=== PATIENT | female | born 1950 | race Caucasian/White ===

== ENCOUNTER → 2018-11-04 12:31 | Outpatient (CLI) | payer OTHER, SELFPAY ==
--- NOTE | 2018-11-04 | DI.MG.S_ITS ---
BILATERAL DIGITAL SCREENING MAMMOGRAM 3D/2D WITH CAD: 11/04/2018 CLINICAL: Routine screening. Comparison is made to exams dated: 02/24/2014 mammogram, 09/06/2010 mammogram, and 09/08/2008 mammogram - [facility]. The tissue of both breasts is heterogeneously dense. This may lower the sensitivity of mammography. Current study was also evaluated with a Computer Aided Detection (CAD) system. No significant masses, calcifications, or other findings are seen in either breast. There has been no significant interval change. IMPRESSION: NEGATIVE There is no mammographic evidence of malignancy. A 1 year screening mammogram is recommended. This exam was interpreted at Station ID: [id number]. NOTE: For mammograms, a report in lay terms will be sent to the patient. Approximately 15% of breast malignancies will not be visualized mammographically. In the management of a palpable breast mass, a negative mammogram must not discourage biopsy of a clinically suspicious lesion. Electronically Signed By: Nelson holloway/sophia:11/04/2018 13:34:20 letter sent: Normal Exam ACR BI-RADS Category 1: Negative 3341F
== END ==
PROVIDERS: PCP Internal Medicine; Visit Provider Internal Medicine
DX: Z12.31 Encounter for screening mammogram for malignant neoplasm of breast (principal)
CPT/HCPCS: 77063; 77067

== ENCOUNTER → 2019-04-14 11:27 | Outpatient (CLI) | payer OTHER, SELFPAY ==
[2019-04-14 13:43] LABS: Blood Urea Nitrogen 14 mg/dL (7-17); Carbon Dioxide 29 mmol/L (22-32); Chloride 103 mmol/L (98-107); Cholesterol 256 mg/dL (140-199); Estimated Glomerular Filt Rate > 60.0 mL/min (>60); Glucose 85 mg/dL (80-110); HEMOLYSIS < 15 (0-50); Potassium 4.7 mmol/L (3.4-5.1); Sodium 139 mmol/L (137-145); Triglycerides 63 mg/dL (35-150)
[2019-04-14 13:51] LABS: HDL Cholesterol 129 mg/dL (40-60); LDL Cholesterol Calculated 114 mg/dL (<100)
== END ==
PROVIDERS: PCP Internal Medicine; Visit Provider Internal Medicine
DX: Z13.220 Encounter for screening for lipoid disorders (principal); Z13.1 Encounter for screening for diabetes mellitus
CPT/HCPCS: 36415; 80048; 80061

== ENCOUNTER → 2019-04-17 14:40 | Outpatient (CLI) | payer OTHER, SELFPAY | PROVIDERS: PCP Internal Medicine; Visit Provider Internal Medicine | DX: Z78.0 Asymptomatic menopausal state (principal); F17.200 Nicotine dependence, unspecified, uncomplicated | CPT/HCPCS: 77080 ==

== ENCOUNTER → 2020-11-30 08:31 | Outpatient (CLI) | payer OTHER, SELFPAY ==
[2020-11-30 10:23] LABS: Alanine Aminotransferase 44 IU/L (<35); Albumin Globulin Ratio 1.3 (1.0-2.8); Alkaline Phosphatase 104 U/L (38-126); Aspartate Aminotransferase 69 IU/L (14-36); BUN Creatinine Ratio 19.1 (6-22); Bilirubin Total 0.2 mg/dL (0.2-1.3); Blood Urea Nitrogen 9 mg/dL (7-17); Calcium 9.6 mg/dL (8.4-10.2); Carbon Dioxide 30 mmol/L (22-32); Chloride 102 mmol/L (98-107); Cholesterol 232 mg/dL (140-199); Estimated Glomerular Filt Rate > 60.0 mL/min (>60); Glucose 92 mg/dL (80-110); HEMOLYSIS < 15 (0-50); Potassium 3.8 mmol/L (3.4-5.1); Sodium 136 mmol/L (137-145); Triglycerides 50 mg/dL (35-150)
[2020-11-30 10:40] LABS: HDL Cholesterol 143 mg/dL (40-60); LDL Cholesterol Calculated 79 mg/dL (<100)
== END ==
PROVIDERS: PCP Internal Medicine; Referring Provider Internal Medicine; Visit Provider Internal Medicine
DX: E78.5 Hyperlipidemia, unspecified (principal)
CPT/HCPCS: 36415; 80053; 80061

== ENCOUNTER → 2020-12-09 11:21 | Outpatient (CLI) | payer OTHER, SELFPAY ==
--- NOTE | 2020-12-09 | DI.MG.S_ITS ---
BILATERAL DIGITAL SCREENING MAMMOGRAM 3D/2D WITH CAD: 12/09/2020 CLINICAL: Routine screening. Comparison is made to exams dated: 11/04/2018 mammogram - [facility], 02/24/2014 mammogram, and 09/06/2010 mammogram - [facility]. The tissue of both breasts is heterogeneously dense. This may lower the sensitivity of mammography. Current study was also evaluated with a Computer Aided Detection (CAD) system. No significant masses, calcifications, or other findings are seen in either breast. There has been no significant interval change. IMPRESSION: NEGATIVE There is no mammographic evidence of malignancy. A 1 year screening mammogram is recommended. This exam was interpreted at Station ID: [id number]. NOTE: For mammograms, a report in lay terms will be sent to the patient. Approximately 15% of breast malignancies will not be visualized mammographically. In the management of a palpable breast mass, a negative mammogram must not discourage biopsy of a clinically suspicious lesion. Electronically Signed By: Nelson holloway/sophia:12/09/2020 17:52:19 letter sent: Normal Exam ACR BI-RADS Category 1: Negative 3341F
== END ==
PROVIDERS: PCP Internal Medicine; Referring Provider Internal Medicine; Visit Provider Internal Medicine
DX: Z12.31 Encounter for screening mammogram for malignant neoplasm of breast (principal)
CPT/HCPCS: 77063; 77067

== ENCOUNTER → 2020-12-17 14:56 | Outpatient (CLI) | payer OTHER, SELFPAY ==
--- NOTE | 2020-12-17 14:58 | DI.US.S_ITS ---
PROCEDURE: US RENAL COMPLETE INDICATIONS: LEFT FLANK PAIN - POST FALL TECHNIQUE: Real-time scanning was performed of the kidneys and bladder, with image documentation. COMPARISON: None. FINDINGS: Kidneys: Kidneys are normal in size. Right kidney measures 9.6 cm long; left kidney measures 9.5 cm long. Right renal cortical thickness is 1.5 cm; left renal cortical thickness is 1.7 cm. Renal cortical echotexture is normal. No hydronephrosis or nephrolithiasis. No suspicious solid mass lesions. There is a left-sided column of Emmett. Bladder: Pre-void bladder volume is 261 mL. On pre-void images, left but not the right ureteral jets are noted with color Doppler interrogation. (Of note, ureteral jets may not be detectable in up to 25% of cases due to insufficient differences in specific gravity between ureteral and bladder urine). The patient was unable to void voluntarily. Miscellaneous: No free pelvic fluid. IMPRESSION: No hydronephrosis or nephrolithiasis found. Two hundred sixty-one prevoid bladder volume but the patient was unable to voluntarily void. No left-sided urinary tract trauma found. Dictated by: Jose L Ward M.D. on 12/17/2020 at 16:10 Approved by: Jose L Ward M.D. on 12/17/2020 at 16:13
[2020-12-17 17:57] LABS: Appearance Urine UA CLEAR; Bilirubin Urine UA NEGATIVE (NEGATIVE); Color Urine UA YELLOW; Glucose Urine UA TRACE g/dL (Negative); Ketones Urine UA NEGATIVE (NEGATIVE); Leukocyte Esterase Urine UA TRACE (NEGATIVE); Nitrite Urine UA NEGATIVE (Negative); Occult Blood Urine UA NEGATIVE (Negative); Protein Urine UA NEGATIVE (Negative); Specific Gravity Urine UA 1.015 (1.000-1.035); Urobilinogen Urine UA 0.2 E.U./dL (0.2)
[2020-12-17 18:01] LABS: pH Urine UA 5.5 (4.5-8.0)
[2020-12-17 18:02] LABS: Bacteria Urine None Seen
[2020-12-17 18:08] LABS: Hyaline Casts Urine 0-1/LPF; RBC Urine 0-1/HPF (0-5/HPF); Squamous Epithelial Cell Urine 0-1 /HPF (0-5/HPF); WBC Urine 0-1/HPF (0-5/HPF)
[2020-12-17 18:09] LABS: Culture Indicated Urine Cult Not Indicated
== END ==
PROVIDERS: PCP Internal Medicine; Referring Provider Physician Assistant; Visit Provider Physician Assistant
DX: R10.9 Unspecified abdominal pain (principal)
CPT/HCPCS: 76770; 81003; 81015

== ENCOUNTER 2020-12-19 10:10 | Emergency (ER) | payer OTHER, SELFPAY ==
[2020-12-19 10:18] VITALS: BP 140/77; PULSE 98; RESP 17; TEMP 36.5; O2SAT 100; BMI 24.4
--- NOTE | 2020-12-19 10:49 | ED.BACK ---
HPI - Back Pain/Injury General Chief Complaint: Fall Stated Complaint: fell sunday /left flank pain Time Seen by Provider: 12/19/20 10:40 Source: patient Limitations: no limitations History of Present Illness HPI Narrative: Patient fell in or garden last Sunday. She lost her balance and fell against some rocks. Injuring left lower flank area. Denies any other injuries no head or neck or limb injury. Denies any fever chills. No hematuria. Seen by urgent care 2 days ago and had ultrasound of the kidneys and urinalysis. No blood work. Patient recently had blood work done by primary care for routine studies. There is no hematuria or blood seen on the urinalysis 2 days ago. Please see report below for ultrasound of the kidneys. Patient drove herself here [address] [id number] ReportSigned Patient: Nory Hess#: [id number]: 3Acct:[id number]/Sex: 70 / FDate of Service: 12/17/20Loc: USAccession Number: [id number] Procedure: US renal complete Ordering Provider: Rachel Bonilla P.A-C PROCEDURE: US RENAL COMPLETE INDICATIONS: LEFT FLANK PAIN - POST FALL TECHNIQUE: Real-time scanning was performed of the kidneys and bladder, with image documentation. COMPARISON: None. FINDINGS: Kidneys: Kidneys are normal in size. Right kidney measures 9.6 cm long; left kidney measures 9.5 cm long. Right renal cortical thickness is 1.5 cm; left renal cortical thickness is 1.7 cm. Renal cortical echotexture is normal. No hydronephrosis or nephrolithiasis. No suspicious solid mass lesions. There is a left-sided column of Emmett. Bladder: Pre-void bladder volume is 261 mL. On pre-void images, left but not the right ureteral jets are noted with color Doppler interrogation. (Of note, ureteral jets may not be detectable in up to 25% of cases due to insufficient differences in specific gravity between ureteral and bladder urine). The patient was unable to void voluntarily. Miscellaneous: No free pelvic fluid. IMPRESSION: No hydronephrosis or nephrolithiasis found. Two hundred sixty-one prevoid bladder volume but the patient was unable to voluntarily void. No left-sided urinary tract trauma found. Dictated by: Jose L Ward M.D. on 12/17/2020 at 16:10 Approved by: Jose L Ward M.D. on 12/17/2020 at 16:13 Related Data Home Medications Medication Instructions Recorded Confirmed escitalopram oxalate 20 mg tablet 20 mg PO DAILY tab 01/19/19 12/17/20 meloxicam 7.5 mg tablet 7.5 mg PO DAILY 01/19/19 12/17/20 sulfamethoxazole 800 1 tab PO BID 01/19/19 12/17/20 mg-trimethoprim 160 mg tablet Previous Rx's Medication Instructions Recorded prednisone 20 mg tablet 20 mg PO DAILY #10 tab 01/19/19 hydrocodone-acetaminophen 1 tab PO Q6H PRN #7 tab 12/19/20 Allergies Allergy/AdvReac Type Severity Reaction Status Date / Time Penicillins Allergy Intermediate Verified 12/17/20 14:15 Review of Systems Review of Systems Narrative: GENERAL: Denies chills, fatigue, malaise, fever, sweats. HEENT: Denies sinus pain, ear pain, sore throat RESPIRATORY: Denies dyspnea, cough CARDIOVASCULAR: Denies chest pain, palpitations GASTROINTESTINAL: Denies nausea, vomiting, abdominal pain : Denies dysuria, frequency, hematuria MUSCULOSKELETAL: Complaint muscle or bony pain SKIN: Denies rash, skin lesions, no laceration or abrasion. Bruising present NEUROLOGIC: Denies weakness, numbness ROS Unobtainable: All systems reviewed & are unremarkable except as noted in HPI and below Patient History Social History Smoking Status: Unknown if ever smoked Smoking Status: Unknown if ever smoked Substance Use Type: does not use Exam Narrative Exam Narrative: GENERAL: in no distress, not toxic not dyspneic HEAD: Normocephalic. EYES: Pupils equal round No scleral icterus. No injection no discharge ENT: Mucous membranes moist. NECK: Trachea midline. CARDIOVASCULAR: Regular rate and rhythm without murmurs RESPIRATORY: Clear to auscultation. Breath sounds equal bilaterally. No wheezes, rales, or rhonchi. GASTROINTESTINAL: Abdomen soft, non-tender EXTREMITIES: No gross deformities. BACK: There is no no midline tenderness or step-off. There is small amount of bruising 5 cm in diameter that is tender at the low paralumbar left side. Just above the pelvis bone. Not overlying the kidney. NEURO: AOx4. SKIN: Warm and dry PSYCH: Not anxious, is cooperative Initial Vital Signs Initial Vital Signs: Vital Signs Temperature 97.7 F 12/19/20 10:18 Pulse Rate 98 H 12/19/20 10:18 Respiratory Rate 17 12/19/20 10:18 Blood Pressure 140/77 12/19/20 10:18 Pulse Oximetry 100 12/19/20 10:18 Course Course Course Narrative: No new issues during course of stay. Orders Ordered: ED Orders 12/19/20 10:48 CT abdomen pelvis wo con Stat 12/19/20 10:53 Complete Blood Count AUTO DIFF Stat Comprehensive Metabolic Panel Stat Reevaluation(s) Reevaluation #1: Reviewed results with patient. Agrees with treatment plan and follow-up with primary care. Time: 12:01 Vital Signs Vital signs: Vital Signs - 8 hr 12/19/20 10:18 12/19/20 11:11 Temperature 97.7 F Pulse Rate 98 H 81 Respiratory Rate 17 14 Blood Pressure 140/77 120/75 Pulse Oximetry 100 99 MDM - Back Pain/Injury Differential Diagnosis Differential diagnosis: Likely other (Contusion/fracture/hematoma) Lab Data Attestation: I reviewed the patient's lab results. Result diagrams: 12/19/20 10:53 12/19/20 10:53 Labs: Lab Results 12/19/20 12/19/20 Range/Units 10:53 10:53 WBC 6.4 (4.5-11.0) X10^3/uL RBC 5.01 (4.0-5.2) X10^6/uL Hgb 14.4 (12.0-16.0) g/dL Hct 44.2 (36-46) % MCV 88.3 (80-100) fL MCH 28.8 (26-34) PG MCHC 32.6 (30-36) % RDW 14.0 (11.6-14.8) % Plt Count 298 (150-400) X10^3/uL Neut % (Auto) 65.0 (50-75) % Lymph % (Auto) 25.7 (25-40) % Hodgeman % (Auto) 6.0 (3-14) % Eos % (Auto) 2.4 (2-4) % Baso % (Auto) 0.9 (0-2) % Neut # (Auto) 4100 (6451-1149) /uL Lymph # (Auto) 1600 (8261-5453) /uL Hodgeman # (Auto) 400 (0-900) /uL Eos # (Auto) 200 (0-450) /uL Baso # (Auto) 100 (0-100) /uL Sodium 139 (137-145) mmol/L Potassium 3.7 (3.4-5.1) mmol/L Chloride 101 (98-107) mmol/L Carbon Dioxide 30 (22-32) mmol/L BUN 16 (7-17) mg/dL Creatinine 0.61 (0.52-1.04) mg/dL Estimated GFR > 60.0 (>60) mL/min BUN/Creatinine Ratio 26.2 H (6-22) Glucose 117 H (80-110) mg/dL Calcium 10.1 (8.4-10.2) mg/dL Total Bilirubin 0.5 (0.2-1.3) mg/dL AST 38 H (14-36) IU/L ALT 30 (<35) IU/L Alkaline Phosphatase 104 (38-126) U/L Total Protein 7.5 (6.3-8.2) g/dL Albumin 4.2 (3.5-5.0) g/dL Globulin 3.3 (1.7-4.1) g/dL Albumin/Globulin Ratio 1.3 (1.0-2.8) Imaging Data CT scan - abdomen/pelvis: Radiologist's Impression: [address] [id number] Scan ReportSigned Patient: Nory Hess#: [id number]: 1950cct:[id number]/Sex: 70 / FDate of Service: 12/19/20Loc: EDAccession Number: [id number] Procedure: CT abdomen pelvis wo con Ordering Provider: Kyle Smith MD PROCEDURE: CT ABDOMEN PELVIS WO CON INDICATIONS: Injury/fall/left flank pain TECHNIQUE: Noncontrast 5 mm thick sections acquired from the diaphragms to the symphysis. 5 mm coronal and sagittal reformats were then performed. For radiation dose reduction, the following was used: automated exposure control, adjustment of mA and/or kV according to patient size. COMPARISON: None. FINDINGS: Image quality: There is artifact associated with the metallic hardware. ABDOMEN: Lung bases: Lung bases are clear. Heart size is normal. Moderate coronary artery calcification is seen. Solid organs: Liver is normal in size. Gallbladder wall is not thickened. Pancreas is normal in contours. Spleen is normal in size. No adrenal nodules. Kidneys are normal in size, without hydronephrosis or nephrolithiasis. Peritoneum and bowel: Unenhanced bowel loops demonstrate normal wall thickness and caliber. No free fluid or air. Nodes and vessels: No retroperitoneal or mesenteric adenopathy by size criteria. Aorta and inferior vena cava are normal in caliber. Atherosclerotic calcification is noted. Miscellaneous: No ventral hernias. PELVIS: Genitourinary: Bladder wall thickness is normal. This patient is status post hysterectomy. No adnexal masses are seen. Miscellaneous: No inguinal hernias or adenopathy. Bones: Remote, healed right posterolateral rib fractures are seen. No suspicious bony lesions. Right hip arthroplasty hardware is seen over with associated streak artifact through No vertebral body compression fractures. Bilateral pars defects are seen, with associated grade 1 L5-S1 anterolisthesis. Moderate to severe disc space narrowing can be seen at L1-L2 and L5-S1. Milder degenerative changes are seen elsewhere. Mild levoconvex scoliotic curvature is noted. IMPRESSION: No acute post-traumatic abnormality can be seen. Incidental note is made of: Moderate coronary artery calcification Remote, healed right posterolateral rib fractures Hysterectomy L5 pars defects, with grade 1 L5-S1 anterolisthesis Focal L1-L2 and L5-S1 degenerative change Right hip arthroplasty hardware, with streak artifact Dictated by: Ced Euceda M.D. on 12/19/2020 at 10:46 Approved by: Ced Euceda M.D. on 12/19/2020 at 10:49 MDM Narrative Medical decision making narrative: Appropriate for discharge home. Labs and imaging reassuring. Pain is controlled. Appropriate for follow-up. Discharge Plan Departure Patient Disposition: Home Clinical Impression: Contusion of back Qualifiers: Encounter type: initial encounter Laterality: left Qualified Code(s): S20.222A - Contusion of left back wall of thorax, initial encounter Instructions: DI for Contusion, How to Prevent Falls Activity Restrictions/Additional Instructions: See family doctor this week for recheck. Return if worse or any questions or concerns. Prescriptions: New hydrocodone-acetaminophen 5-325 mg tablet 1 tab PO Q6H PRN (Reason: pain) Qty: 7 RF: 0 No Action escitalopram oxalate [Lexapro] 20 mg tablet 20 mg PO DAILY RF: 0 meloxicam 7.5 mg tablet 7.5 mg PO DAILY RF: 0 sulfamethoxazole-trimethoprim [Bactrim DS] 800-160 mg tablet 1 tab PO BID RF: 0 prednisone 20 mg tablet 20 mg PO DAILY Qty: 10 RF: 0 Referrals: Keila Joseph MD [Primary Care Provider] -
[2020-12-19 11:11] VITALS: BP 120/75; PULSE 81; RESP 14; O2SAT 99
[2020-12-19 11:12] LABS: Add Manual Diff / Slide Review NO; Basophils Absolute Auto 100 /uL (0-100); Basophils Percent Auto 0.9 % (0-2); Eosinophils Absolute Auto 200 /uL (0-450); Eosinophils Percent Auto 2.4 % (2-4); Hematocrit 44.2 % (36-46); Hemoglobin 14.4 g/dL (12.0-16.0); Lymphocytes Absolute Auto 1600 /uL (1100-4500); Lymphocytes Percent Auto 25.7 % (25-40); Mean Corpuscular HGB Conc 32.6 % (30-36); Mean Corpuscular Hemoglobin 28.8 PG (26-34); Mean Corpuscular Volume 88.3 fL (80-100); Monocytes Absolute Auto 400 /uL (0-900); Neutrophils Absolute Auto 4100 /uL (1500-7000); Platelet Count 298 X10^3/uL (150-400); Red Blood Cell Count 5.01 X10^6/uL (4.0-5.2); White Blood Cell Count 6.4 X10^3/uL (4.5-11.0)
[2020-12-19 11:17] LABS: Alanine Aminotransferase 30 IU/L (<35); Albumin 4.2 g/dL (3.5-5.0); Albumin Globulin Ratio 1.3 (1.0-2.8); Alkaline Phosphatase 104 U/L (38-126); Aspartate Aminotransferase 38 IU/L (14-36); BUN Creatinine Ratio 26.2 (6-22); Bilirubin Total 0.5 mg/dL (0.2-1.3); Blood Urea Nitrogen 16 mg/dL (7-17); Calcium 10.1 mg/dL (8.4-10.2); Carbon Dioxide 30 mmol/L (22-32); Chloride 101 mmol/L (98-107); Estimated Glomerular Filt Rate > 60.0 mL/min (>60); Globulin 3.3 g/dL (1.7-4.1); Glucose 117 mg/dL (80-110); HEMOLYSIS < 15 (0-50); Potassium 3.7 mmol/L (3.4-5.1); Sodium 139 mmol/L (137-145); Total Protein 7.5 g/dL (6.3-8.2)
== END 2020-12-19 12:28 | disposition home or self-care (01) ==
PROVIDERS: Emergency Provider Emergency Medicine; PCP Internal Medicine
DX: S20.222A Contusion of left back wall of thorax, initial encounter (principal); W19.XXXA Unspecified fall, initial encounter
CPT/HCPCS: 36415; 74176; 80053; 85025; 99284

== ENCOUNTER → 2021-06-10 08:02 | Outpatient (CLI) | payer MEDICARE, SELFPAY ==
[2021-06-10] MEDS: COVID-19 VACC #3, MRNA(MOD) 50 MCG/0.25 ML VIAL IM (08:13)
== END ==
PROVIDERS: PCP Internal Medicine; Visit Provider Internal Medicine
DX: Z23 Encounter for immunization (principal)
CPT/HCPCS: 0013A; 91301

== ENCOUNTER → 2023-04-16 15:18 | Outpatient (CLI) | payer OTHER, SELFPAY ==
--- NOTE | 2023-04-16 | DI.MG.S_ITS ---
BILATERAL DIGITAL SCREENING MAMMOGRAM 3D/2D WITH CAD: 04/16/2023 CLINICAL: Routine screening. Comparison is made to exams dated: 12/09/2020 mammogram, 11/04/2018 mammogram - [facility], and 02/24/2014 mammogram - [facility]. Both breasts are heterogeneously dense, which may obscure small masses (category c / 51-75% glandular tissue). Current study was also evaluated with a Computer Aided Detection (CAD) system. No significant masses, calcifications, or other findings are seen in either breast. There has been no significant interval change. IMPRESSION: NEGATIVE There is no mammographic evidence of malignancy. A 1 year screening mammogram is recommended. Based on the Tyrer Cuzick model (a risk assessment model) the patient's lifetime risk is 6.9% and her 10 year risk is 4.4%. According to the ACR, ACS, and NCCN guidelines, an annual breast MRI exam along with mammogram is recommended if the patient's lifetime risk is 20% or greater. This exam was interpreted at Station ID: [id number]. NOTE: For mammograms, a report in lay terms will be sent to the patient. Approximately 15% of breast malignancies will not be visualized mammographically. In the management of a palpable breast mass, a negative mammogram must not discourage biopsy of a clinically suspicious lesion. Electronically Signed By: Vane cole/sophia:04/17/2023 09:15:33 letter sent: Normal Exam ACR BI-RADS Category 1: Negative 3341F
== END ==
PROVIDERS: PCP Internal Medicine; Referring Provider Internal Medicine; Visit Provider Internal Medicine
DX: Z12.31 Encounter for screening mammogram for malignant neoplasm of breast (principal)
CPT/HCPCS: 77063; 77067

== ENCOUNTER 2023-06-04 11:02 | Day surgery (SDC) | payer OTHER, SELFPAY ==
--- NOTE | 2023-06-04 | PATH_ITS ---
[facility] Accession Number: [id number] No. of containers..01 Tissue . 01 Material submitted: . colon - TRANSVERSE POLYP . 01 Diagnosis: Transverse Colon Polyp: Tubular adenoma. [facility] 06/13/2023 1146 Local . 01 Electronically signed: . Merritt Cunningham MD, PhD, Pathologist NPI- [id number] . 01 Gross description: . TRANSVERSE POLYP: Received in formalin is 1 fragment(s) of sr, soft tissue measuring 0.2 x 0.2 x 0.2 cm submitted entirely in 1 cassette(s) /GEORGE 06/05/2023 1856 Local . 01 Pathologist provided ICD-10: D12.3 . 01 CPT . 423108 Specimen Comment: A courtesy copy of this report has been sent to [phone] Performed at: [address] [facility] Cytology [address] [place] [address] [id number] MD Erik Taylor MD Phone: [phone]
[2023-06-04 11:39] VITALS: BP 149/94; PULSE 79; RESP 17; TEMP 36.3; O2SAT 98; BMI 24.0
[2023-06-04] MEDS: LACTATED RINGERS 1,000 ML 150 ML IV (11:56)
--- NOTE | 2023-06-04 12:33 | P.HP_ITS ---
History of Present Illness History of Present Illness Date Patient Seen: 06/04/23 Time Patient Seen: 12:33 Chief complaint: Dx Colonoscopy w/poss bx Narrative: 72-year-old female with family history of colon polyps and a personal history of colon polyps. Histology on all of these polyps is unknown. She could not recall the exact timing of her last colonoscopy. [facility] Social History household members: none Smoking Status: Never smoker alcohol intake: current Meds Home Medications and Allergies Home Medications Medication Instructions Recorded Confirmed Type escitalopram oxalate 20 mg tablet 20 mg PO DAILY 01/19/19 06/04/23 History (Lexapro) meloxicam 7.5 mg tablet 7.5 mg PO DAILY 01/19/19 06/04/23 History Methotrexate (Anti-Rheumatic) 2.5 mg PO WEEKLY 06/04/23 06/04/23 History Allergies Allergy/AdvReac Type Severity Reaction Status Date / Time Penicillins Allergy Intermediate Verified 12/17/20 14:15 Review of Systems Review of Systems ROS: Yes All systems reviewed with the patient and are negative except as otherwise documented Exam Vital Signs (past 8 hours): - 06/04/23 11:39 Temperature 97.4 F L Pulse Rate 79 Respiratory Rate 17 Blood Pressure 149/94 H Pulse Oximetry 98 Oxygen Delivery Method Room Air Oxygen Delivery Method Room Air Const General: cooperative HENMT Head: normal to inspection Eyes General: appearance normal, both eyes and all related structures Neck Neck: normal visual inspection Chest Chest: normal inspection of the chest Resp Effort & Inspection: normal respiratory effort Cardio Rate: regular rate GI Inspection: normal to inspection Skin General: no rashes or lesions noted Neuro General: patient alert and patient awake Extrem General: normal to inspection and no pedal edema Psych Appearance: grossly normal Assessment & Plan Assessment & Plan narrative: 72-year-old female with a personal and family history of unknown histology colon polyps. Colonoscopy is pursued today.
--- NOTE | 2023-06-04 12:34 | PM.PREOP ---
Pre-operative Note Interval Note History & Physical reviewed/Exam performed by Physician: Yes Changes to H&P: No ASA Class (for procedural sedation): II
--- NOTE | 2023-06-04 13:32 | PM.OP.COLON ---
Operative Date/Time/Diagnoses Date of procedure: 06/04/23 Time of procedure: 13:32 Pre-op diagnosis: Personal history of colon polyps family history of colon polyps all unknown histology. Post-op diagnosis: same Procedure & Clinicians Study performed: Colonoscopy with cold forceps polypectomy Same procedure as scheduled: Yes Indications: Personal and family history of unknown histology colon polyps Surgeon: Nabil Rainey Procedure Notes SCOAP/Timeout: Done Procedure in detail: After the risks and benefits were explained, written and verbal informed consent was obtained. The patient was brought into the procedure room and placed into the left lateral decubitus position. Please see anesthesia notes for sedation details. Digital rectal examination was accomplished. The scope was introduced into the patient and advanced under direct visualization to the cecum as identified by the appendiceal orifice and ileocecal valve. The scope was slowly withdrawn to carefully examine the mucosa for any defects or lesions. Comprehensive imaging was accomplished throughout the rectum including the dentate line. The colon was decompressed, the scope was then removed from the patient who tolerated the procedure well. Pediatric colonoscope Bowel prep adequate Scope withdrawal time: 10 minutes Sedation minutes: 21 Complications: none Impression: There was some early diverticulosis in the sigmoid. The sigmoid was fairly tortuous. In the transverse colon there was a diminutive polyp removed with cold forceps. No additional significant pathology appreciated throughout. Endoscopic diagnosis 1. Small colon polyp 2. Diverticulosis 3. Twisty left colon Post-procedure Plan for aftercare: 1. Await histopathology. 2. Contingent on pathology results, surveillance colonoscopy can be considered. Disposition: PACU
[2023-06-04 13:33] VITALS: BP 100/52; PULSE 78; RESP 21; TEMP 36.1; O2SAT 96
[2023-06-04 13:37] VITALS: BP 107/65; PULSE 76; RESP 15; O2SAT 96
[2023-06-04 13:42] VITALS: BP 118/75; PULSE 76; RESP 14; TEMP 36.7; O2SAT 98
[2023-06-04 13:51] VITALS: BP 118/75; PULSE 73; RESP 16; TEMP 36.7; O2SAT 100
== END 2023-06-04 14:07 | disposition home or self-care (01) ==
PROVIDERS: PCP Internal Medicine; Referring Provider Internal Medicine Gastroenterology; Visit Provider Internal Medicine Gastroenterology
PROC: 0DJD8ZZ Inspection of Lower Intestinal Tract, Via Natural or Artificial Opening Endoscopic (ICD-10-PCS; CPT 45378; principal; 2023-06-04 12:30)
DX: Z12.11 Encounter for screening for malignant neoplasm of colon (principal); Z86.010 Personal history of colon polyps; Z83.719 Family history of colon polyps, unspecified; K57.30 Diverticulosis of large intestine without perforation or abscess without bleeding; D12.3 Benign neoplasm of transverse colon
CPT/HCPCS: 45380; J2704

== ENCOUNTER → 2024-02-23 16:51 | Outpatient (CLI) | payer MEDICARE, SELFPAY ==
--- NOTE | 2024-02-23 16:53 | DI.RAD.S_ITS ---
PROCEDURE: XR FOOT LT MIN 3V INDICATIONS: Left foot pain TECHNIQUE: 3 views of the foot were acquired. COMPARISON: None. FINDINGS: Bones: No fractures or dislocations. No suspicious bony lesions. Generalized degenerative changes are seen, which are worst along the Lisfranc joint. Focal 1st metatarsophalangeal joint degenerative change is also seen. Incidental note is made of an accessory ossicle, a bipartite os trigonum. Soft tissues: No tibiotalar joint effusion. Achilles tendon appears normal. IMPRESSION: Generalized degenerative changes are seen by plain film, which are worst along the Lisfranc joint. Dictated by: Ced Euceda M.D. on 02/23/2024 at 16:24 Approved by: Ced Euceda M.D. on 02/23/2024 at 16:25
== END ==
LOC: RAD 16:52
PROVIDERS: PCP Internal Medicine; Referring Provider Registered Nurse; Visit Provider Registered Nurse
DX: M79.672 Pain in left foot (principal)
CPT/HCPCS: 73630

== ENCOUNTER → 2025-01-27 12:40 | Outpatient (CLI) | payer MEDICARE, SELFPAY ==
--- NOTE | 2025-01-27 12:41 | DI.MG.S_ITS ---
MM screening mammo BI: 01/27/2025. BI-RADS: 1 CLINICAL: 74-year old female for bilateral screening mammogram. Tyrer-Cuzick lifetime risk of 4.2%. No personal or first-degree family history of breast cancer. PRIOR EXAMS 04/16/2023, 12/09/2020, 11/04/2018. MAMMOGRAPHY TECHNIQUE: 2D and 3D (tomosynthesis) digital mammographic views obtained, with additional images as needed for full coverage. Current study was also evaluated with a Computer Aided Detection (CAD) system. DENSITY C. The breasts are heterogeneously dense, which may obscure small masses. MAMMOGRAPHY FINDINGS Bilateral: No suspicious mass, asymmetry, microcalcification, or other abnormality seen. No significant change from comparison. IMPRESSION: * No evidence of malignancy. RECOMMENDATIONS Bilateral * Annual screening mammography. OVERALL ASSESSMENT CATEGORY BI-RADS-1: Negative. The [employer] recommends annual screening mammography beginning at age 40 for women with average risk of breast cancer. PRELIMINARILY ELECTRONICALLY SIGNED: Laverne Hauser M.D. on 01/27/2025 at 11:22:57 PM PT ELECTRONICALLY SIGNED: Laverne Huaser M.D. on 01/30/2025 at 05:07:10 PM PT Interpreting Station ID: [id number]
== END ==
PROVIDERS: PCP Internal Medicine; Referring Provider Internal Medicine; Visit Provider Internal Medicine
DX: Z12.31 Encounter for screening mammogram for malignant neoplasm of breast (principal); R92.333 Mammographic heterogeneous density, bilateral breasts
CPT/HCPCS: 77063; 77067

== ENCOUNTER → 2025-01-30 10:45 | Outpatient (CLI) | payer MEDICARE, SELFPAY ==
[2025-01-30 11:50] LABS: Add Manual Diff / Slide Review NO; Hematocrit 40.8 % (36-46); Hemoglobin 13.8 g/dL (12.0-16.0); Lymphocytes Absolute Auto 2100 /uL (1100-4500); Mean Corpuscular HGB Conc 33.8 % (30-36); Mean Corpuscular Hemoglobin 29.9 PG (26-34); Mean Corpuscular Volume 88.4 fL (80-100); Platelet Count 368 X10^3/uL (150-400)
[2025-01-30 11:53] LABS: Alanine Aminotransferase 20 IU/L (<35); Alkaline Phosphatase 107 U/L (38-126); Estimated Glomerular Filt Rate > 60 mL/min (>60)
== END ==
LOC: LAB 10:46
PROVIDERS: PCP Internal Medicine; Referring Provider Specialist/Technologist Athletic Trainer; Visit Provider Specialist/Technologist Athletic Trainer
DX: D84.9 Immunodeficiency, unspecified (principal); M19.90 Unspecified osteoarthritis, unspecified site; Z79.899 Other long term (current) drug therapy
CPT/HCPCS: 36415; 82565; 84075; 84450; 84460; 85025; 85651; 86140